=== PATIENT | female | born 1960 | race Caucasian/White ===

== ENCOUNTER 2018-12-11 15:12 | Inpatient (IN) ==
[2018-12-11] MEDS ORDERED: *HR* OxyCODONE Immed Rel 5 MG TABLET PO PRN (16:44)
[2018-12-11] MEDS ORDERED: Potassium Citrate 10 MEQ TABLET.ER PO SCH (18:00)
[2018-12-11] MEDS ORDERED: BuPROPion SR (12 HR) 150 MG TABLET PO SCH (18:00)
[2018-12-11] MEDS ORDERED: *HR* Warfarin 2.5 MG TABLET PO SCH (19:45)
[2018-12-11] MEDS: Spironolactone 25 MG TABLET PO SCH (19:56)
[2018-12-11] MEDS: Topiramate 100 MG TABLET PO SCH (19:57)
[2018-12-11] MEDS ORDERED: traZODone 50 MG TABLET PO SCH (21:00)
[2018-12-11] MEDS ORDERED: Famotidine 20 MG TABLET PO SCH (21:00)
[2018-12-12 05:52] LABS: Basophils % 0.2 %; Eosinophils # 0.2 K/mcL (0.0-0.6); Eosinophils % 4.3 %; Hematocrit 37.2 % (35.3-44.9); Hemoglobin 12.5 g/dL (11.5-15.4); Lymphocytes # 1.4 K/mcL (0.6-4.6); Lymphocytes % 32.9 %; Mean Corpuscular HGB Conc 33.6 g/dL (31.6-35.5); Mean Corpuscular Hemoglobin 32.9 pg (28.0-33.3); Mean Corpuscular Volume 97.9 fL (83.0-100.0); Mean Platelet Volume 8.4 fL (9.4-12.4); Monocytes # 0.5 K/mcL (0.0-1.3); Monocytes % 10.6 %; Neutrophils # 2.1 K/mcL (1.6-8.9); Platelet Count 100 K/mcL (140-400); Red Cell Distribution Width 12.8 % (11.5-14.5); White Blood Count 4.2 K/mcL (4.3-11.1)
[2018-12-12] MEDS ORDERED: MOM Conc 10 ML UD.LIQ PO SCH (06:00)
[2018-12-12 06:01] LABS: INR 2.3
[2018-12-12 06:03] LABS: Activated Partial Thrombo Time 41.8 Seconds (26.0-36.0)
[2018-12-12 06:18] LABS: Calcium 9.4 mg/dL (8.6-10.3); Carbon Dioxide 27 mEq/L (23-29); Chloride 109 mEq/L (98-107); Glucose 80 mg/dL (70-105); Potassium 3.9 mEq/L (3.5-5.1); Sodium 140 mEq/L (136-145); eGFR For African Americans > 60 (> 60); eGFR For Non-African Americans 53 (> 60)
[2018-12-12 06:30] LABS: BUN/Creatinine Ratio 11 (6-26); Blood Urea Nitrogen 12 mg/dL (6-20); Osmolality,Calculated 289 (280-300)
[2018-12-12 07:44] VITALS: BP 99/65
[2018-12-12] MEDS ORDERED: Aspirin Enteric Coated 81 MG Tablet PO SCH (09:00)
[2018-12-12] MEDS ORDERED: FLUoxetine 20 MG CAPSULE PO SCH (09:00)
[2018-12-12] MEDS ORDERED: Potassium Citrate 10 MEQ TABLET.ER PO SCH (09:00)
[2018-12-12] MEDS ORDERED: BuPROPion SR (12 HR) 150 MG TABLET PO SCH (09:00)
[2018-12-12] MEDS ORDERED: Cholecalciferol (D-3) 1,000 UNIT (25MCG) TABLET PO SCH (09:00)
[2018-12-12] MEDS: Spironolactone 25 MG TABLET PO SCH (11:31)
[2018-12-12] MEDS: Topiramate 100 MG TABLET PO SCH (11:32)
--- NOTE | 2018-12-12 14:18 | Internal Med History&Physical ---
Date of Encounter: 12/12/18 Time of Encounter: 13:40 Assessment and Plan (1) Compression fracture of L1 lumbar vertebra Current visit: No Status: Acute Status post kyphoplasty 12/10/2018. She states she is pain-free now and wishes to be discharged home. Qualifiers: Encounter type: initial encounter Qualified Code(s): S32.010A - Wedge compression fracture of first lumbar vertebra, initial encounter for closed fracture Internal Medicine - H&P: HPI Chief complaint: L1 compression fracture with kyphoplasty Admitted From: Hospital to Hospital Transfer Plans for Post Hospital Care: Home History of present illness: Ms. Angeles is a 58 year old female who was hospitalized at [facility] November 2629 after experiencing a fall on [facility] campus coming down steps at the Coumadin clinic. She was taken to emergency room where workup showed L1 compression fracture with 40% vertebral body height loss and posterior cortex retropulsion. Coumadin was held and kyphoplasty done December 10. Her postop course was unremarkable and she was discharged December 11 to [facility] swing bed for rehabilitation therapy program prior to returning to independent living. [facility] [place] negative for documented osteoporosis or other bone joint or muscle disorders. She states she has no pain at present time. She feels she is stable for discharge home. Past Med Surg Social Fam HX - Past Medical History Medical history: CVA, dementia, hyperlipidemia, hypertension, kidney stones, renal disease, seizures, thyroid disease, TIA Additional medical history: vascular dementia, antiphospholid syndrome,anxiety,d epression,insomnia,chronic kidney disease stage 3 Psychiatric history: anxiety, depression - Past Surgical History Surgical History: , other Additional surgical history: colonoscopy, ablation,lithotripsy/stent placement - Social History Smoking Status: Never smoker Smokeless Tobacco Status: No Alcohol use: none Drug use: none - Family History Father Living Status: Hx Family Cardiac Disorders: No Hx Family Respiratory Disorders: No Hx Family Cancer: Yes (colon cancer) Hx Family GI Disorders: No Hx Family Endocrine Disorder: No Hx Family Neuromuscular Disorders: No Hx Family Neurologic Disorders: No Hx Family HEENT Disorders: No Hx Family Autoimmune Disorders: No Mother Hx Family Cardiac Disorders: No Hx Family Respiratory Disorders: No Hx Family Cancer: No Hx Family GI Disorders: No Hx Family Endocrine Disorder: No Hx Family Neuromuscular Disorders: No Hx Family Neurologic Disorders: No Hx Family HEENT Disorders: No Hx Family Autoimmune Disorders: No Internal Medicine - H&P: Meds Atorvastatin Calcium [Lipitor] 20 mg PO DAILY 10/22/17 [History] BuPROPion SR (12 HR) [Wellbutrin SR] 150 mg PO QPM 10/22/17 [History] BuPROPion SR (12 HR) [Wellbutrin SR] 300 mg PO QAM 10/22/17 [History] Levothyroxine [Synthroid] 100 mcg PO 0630 10/22/17 [History] Quetiapine Fumarate [Seroquel] 100 mg PO HS 10/22/17 [History] Spironolactone [Aldactone] 50 mg PO BID 10/22/17 [History] Topiramate [Topamax] 25 mg PO BID 10/22/17 [History] raNITIdine HCl [Ranitidine HCl] 300 mg PO HS 10/22/17 [History] Aspirin [Lo-Dose Aspirin EC] 81 mg PO DAILY 12/07/18 [History] Cholecalciferol (D-3) [Vitamin D] 1,000 unit PO DAILY 12/07/18 [History] FLUoxetine HCl [Fluoxetine HCl] 40 mg PO DAILY 12/07/18 [History] Potassium Citrate [Urocit-K] 10 meq PO QAM 12/07/18 [History] Potassium Citrate [Urocit-K] 20 meq PO QPM 12/07/18 [History] Trazodone HCl 300 mg PO HS 12/07/18 [History] Warfarin Sodium 2.5 mg PO MOFR 12/07/18 [History] Warfarin Sodium 5 mg PO SUTUWETHSA 12/07/18 [History] OxyCODONE Immed Rel [Roxicodone 5 MG] 5 mg PO Q8H PRN 5 Days #15 tablet 12/11/18 [Rx] Allergy/AdvReac Type Severity Reaction Status Date / Time divalproex sodium AdvReac See Verified 12/07/18 14:07 [From Depakote] Comments phenytoin [From Dilantin] AdvReac Hives Verified 12/07/18 14:07 All Systems PM: A 10-system review of systems was performed and is negative for pertinent fi ndings except as documented above in the HPI. Review of systems: Gen.: She states her weight has been stable for several months Cardiovascular: She has history of hypertension but denies OR heart failure angina DVT or pulmonary embolus Respiratory: She is a lifelong nonsmoker and denies chronic lung disease GI: She denies disorders of her liver gallbladder or exocrine pancreas : She has chronic kidney disease stage III and follows with a [facility]. She denies other kidney or bladder disorders. Neurologic: She reports a "mini stroke" 2006 leaving her with mild cognitive impairment. She reports 2 grand mal seizures (2004 and 2005). She denies other neurologic disorders. Endocrine: She denies diabetes. She has hypothyroidism and hyperlipidemia. Hematology/oncology: She was diagnosed with antiphospholipid syndrome approximately 2005 and is on lifelong Coumadin. She denies internal malignancies, anemia, or other blood disorders. Psychiatric: She has anxiety and depression but denies other mental health diagnoses. [place] skeletal: As per history of present illness - Constitutional Vitals: Temp Pulse Resp BP Pulse Ox 98.4 F 73 16 99/65 92 12/12/18 07:43 12/12/18 07:43 12/12/18 07:43 12/12/18 07:43 12/12/18 07:43 Exam: Gen.: She is a well-developed well-nourished female resting comfortably in bed who appears in no acute distress. HEENT: Head is atraumatic and normocephalic. Eyes: EOMI. There is no scleral icterus. Mouth: Mucosa is moist. Neck: Supple and nontender. There is no thyromegaly or adenopathy noted. Heart: Regular without murmurs gallops or ectopics Lungs: No wheezes or crackles are heard. Abdomen: Soft and nontender. No masses or guarding are noted. Extremities: There is no cyanosis edema or clubbing noted. Dorsalis pedis and posterior tibial pulses are 1-2 over 2 bilaterally. Neurologic: Mental status: She is talkative and a good historian. Cranial nerves: Smile is symmetric. Forehead wrinkles bilaterally. Tongue protrudes midline. EOMI. Motor: There is no pronator drift. Cerebellar: Finger to nose is intact bilaterally. Skin: Warm and dry. A Band-Aid in her midline low back covers incision closed with 2 sutures. Internal Med - H&P Results - Labs CBC & Chem 7: 12/12/18 05:32 12/12/18 05:32 Labs: Short CBC 12/12/18 Range/Units 05:32 WBC 4.2 L (4.3-11.1) K/mcL Hgb 12.5 (11.5-15.4) g/dL Hct 37.2 (35.3-44.9) % Plt Count 100 L (140-400) K/mcL Neutrophils # 2.1 (1.6-8.9) K/mcL BMP 12/12/18 05:32 Sodium 140 Potassium 3.9 Chloride 109 H Carbon Dioxide 27 BUN 12 Creatinine 1.07 Glucose 80 Calcium 9.4
--- NOTE | 2018-12-12 14:28 | Discharge Summary ---
Date of Encounter: 12/12/18 Time of Encounter: 13:40 - Discharge Diagnosis (1) Compression fracture of L1 lumbar vertebra Priority: Primary Status: Acute Qualifiers: Encounter type: initial encounter Qualified Code(s): S32.010A - Wedge compression fracture of first lumbar vertebra, initial encounter for closed fracture Hospital course: Ms. Angeles is a 58 year old female who was hospitalized at [facility] November 2629 after experiencing a fall on [facility] campus coming down steps at the Coumadin clinic. She was taken to emergency room where workup showed L1 compression frac ture with 40% vertebral body height loss and posterior cortex retropulsion. Coumadin was held and kyphoplasty done December 10. Her postop course was unremarkable and she was discharged December 11 to [facility] swing bed for rehabilitation therapy program prior to returning to independent living. Initial orders were written by the discharging physicians at [facility]. I saw her on December 12 and performed the swing bed history and physical. When I saw her she stated she was pain-free. She reported she been able to walk and do ADLs including eating, grooming, and dressing without assistance. She felt she could be discharged home stating she would not be getting any additional therapy until December 15 due to the holiday weekend. She did not feel she needed analgesics other than OTC Tylenol. She will follow with her PCP within [address] Ferrara as directed. - Time Spent with Patient Total time spent providing and/or coordinating discharge services: - Discharge Medications Prescriptions: Continued Spironolactone [Aldactone] 50 mg PO BID raNITIdine HCl [Ranitidine HCl] 300 mg PO HS Quetiapine Fumarate [Seroquel] 100 mg PO HS Topiramate [Topamax] 25 mg PO BID Levothyroxine [Synthroid] 100 mcg PO 0630 Atorvastatin Calcium [Lipitor] 20 mg PO DAILY BuPROPion SR (12 HR) [Wellbutrin SR] 300 mg PO QAM BuPROPion SR (12 HR) [Wellbutrin SR] 150 mg PO QPM Aspirin [Lo-Dose Aspirin EC] 81 mg PO DAILY Cholecalciferol (D-3) [Vitamin D] 1,000 unit PO DAILY FLUoxetine HCl [Fluoxetine HCl] 40 mg PO DAILY Potassium Citrate [Urocit-K] 10 meq PO QAM Potassium Citrate [Urocit-K] 20 meq PO QPM Trazodone HCl 300 mg PO HS Warfarin Sodium 2.5 mg PO MOFR Warfarin Sodium 5 mg PO SUTUWETHSA OxyCODONE Immed Rel [Roxicodone 5 MG] 5 mg PO Q8H PRN 5 Days #15 tablet PRN Reason: Severe Pain Home Medications: Atorvastatin Calcium [Lipitor] 20 mg PO DAILY 10/22/17 [History] BuPROPion SR (12 HR) [Wellbutrin SR] 150 mg PO QPM 10/22/17 [History] BuPROPion SR (12 HR) [Wellbutrin SR] 300 mg PO QAM 10/22/17 [History] Levothyroxine [Synthroid] 100 mcg PO 0630 10/22/17 [History] Quetiapine Fumarate [Seroquel] 100 mg PO HS 10/22/17 [History] Spironolactone [Aldactone] 50 mg PO BID 10/22/17 [History] Topiramate [Topamax] 25 mg PO BID 10/22/17 [History] raNITIdine HCl [Ranitidine HCl] 300 mg PO HS 10/22/17 [History] Aspirin [Lo-Dose Aspirin EC] 81 mg PO DAILY 12/07/18 [History] Cholecalciferol (D-3) [Vitamin D] 1,000 unit PO DAILY 12/07/18 [History] FLUoxetine HCl [Fluoxetine HCl] 40 mg PO DAILY 12/07/18 [History] Potassium Citrate [Urocit-K] 10 meq PO QAM 12/07/18 [History] Potassium Citrate [Urocit-K] 20 meq PO QPM 12/07/18 [History] Trazodone HCl 300 mg PO HS 12/07/18 [History] Warfarin Sodium 2.5 mg PO MOFR 12/07/18 [History] Warfarin Sodium 5 mg PO SUTUWETHSA 12/07/18 [History] OxyCODONE Immed Rel [Roxicodone 5 MG] 5 mg PO Q8H PRN 5 Days #15 tablet 12/11/18 [Rx] Allergies/Adverse Reactions: Allergy/AdvReac Type Severity Reaction Status Date / Time divalproex sodium AdvReac See Verified 12/07/18 14:07 [From Depakote] Comments phenytoin [From Dilantin] AdvReac Hives Verified 12/07/18 14:07 Date of admission: 12/11/18 17:55 Primary care physician: Apolonia Vallejo MD Consults: 12/11/18 16:57 PT [Consult to Physical Therapy] [CONS] Routine Comment: Evaluate, develop and implement POC Reason for Consult: Weakness Does patient have active BEDREST order?: No Is patient medically & hemodynamically stable?: Yes Patient assessed for mobility or mobilized this visit?: No 12/11/18 16:58 OT [Consult to Occupational Therapy] [CONS] Routine Comment: Evaluate, develop and implement POC Reason for Consult: Weakness Does patient have active BEDREST order?: No Is patient medically & hemodynamically stable?: Yes Patient assessed for mobility or mobilized this visit?: No - Constitutional Vitals: Temp Pulse Resp BP Pulse Ox 98.4 F 73 16 99/65 92 12/12/18 07:43 12/12/18 07:43 12/12/18 07:43 12/12/18 07:43 12/12/18 07:43 - Patient Status Disposition: Home, Self-Care - Discharge Instructions Follow Up With: Apolonia Vallejo MD [Primary Care Provider] - 1 week - Diet and Activity Activity: as per physical therapy Diet: advance to your usual diet
[2018-12-12] MEDS ORDERED: *HR* Warfarin 5 MG TABLET PO SCH (18:00)
[2018-12-12] MEDS ORDERED: Famotidine 20 MG TABLET PO SCH (21:00)
== END 2018-12-12 14:48 | disposition home or self-care (01) | DRG 949 ==
LOC: INPPIK 17:55
PROVIDERS: ADMIT Internal Medicine; ATTEND Internal Medicine